=== PATIENT | male | born 1935 | race Caucasian/White ===

== ENCOUNTER → 2022-02-22 | Outpatient (CLI) | payer MEDICARE ==
[~2022-02-22] MED LIST: BENICAR40 MG PO; GLYBURIDE5 MG PO; LANTUS SOL100 UNIT/1 SQ; METFORMIN HCL500 MG PO; VITAMIN C 500500 MG PO; ZOCOR 40 MG TAB40 MG PO
[2022-02-22 13:50] LABS: BUN/CREATININE RATIO 10 (0-10)
== END ==
LOC: OPSV2 12:08
PROVIDERS: Anesthesiology
DX: Z01.818 Encounter for other preprocedural examination (principal); Z20.822 Contact with and (suspected) exposure to COVID-19; R91.1 Solitary pulmonary nodule; R59.0 Localized enlarged lymph nodes
CPT/HCPCS: 71046; 80048; U0003

== ENCOUNTER → 2022-02-27 | Day surgery (SDC) | payer MEDICARE ==
[~2022-02-27] MED LIST changes: +VITAMIN C1000 MG PO
== END | disposition home or self-care (01) ==
LOC: OR 09:02 → EDSTATUS 12:00
DX: C96.9 Malignant neoplasm of lymphoid, hematopoietic and related tissue, unspecified (principal); R91.8 Other nonspecific abnormal finding of lung field; I10 Essential (primary) hypertension; E78.00 Pure hypercholesterolemia, unspecified; E11.36 Type 2 diabetes mellitus with diabetic cataract; H26.9 Unspecified cataract; Z20.822 Contact with and (suspected) exposure to COVID-19; Z87.891 Personal history of nicotine dependence
CPT/HCPCS: 71045; 82962; 87015; 87070; 87116; 87205; 87206; 87252; J0330; J2704; J2710; J7120

== ENCOUNTER → 2022-03-07 | Outpatient (CLI) | payer MEDICARE | LOC: MRI 09:16 → EMI 09:16 → MRI 10:00 | DX: Z12.82 Encounter for screening for malignant neoplasm of nervous system (principal); C43.9 Malignant melanoma of skin, unspecified | CPT/HCPCS: 70553; A9577 ==

== ENCOUNTER → 2022-04-10 | Outpatient (CLI) | payer MEDICARE | LOC: LAB 10:24 | DX: C43.9 Malignant melanoma of skin, unspecified (principal); R91.8 Other nonspecific abnormal finding of lung field | CPT/HCPCS: 36415; 82565; 84520 ==

== ENCOUNTER → 2022-04-12 | Outpatient (CLI) | payer MEDICARE | LOC: CT 08:30 | DX: C43.9 Malignant melanoma of skin, unspecified (principal); R91.8 Other nonspecific abnormal finding of lung field | CPT/HCPCS: 71270; Q9967 ==

== ENCOUNTER → 2022-04-16 | Outpatient (CLI) | payer MEDICARE | LOC: HEART 5 08:40 | DX: C34.90 Malignant neoplasm of unspecified part of unspecified bronchus or lung (principal) | CPT/HCPCS: 94010 ==

== ENCOUNTER → 2022-04-29 | Day surgery (SDC) | payer MEDICARE ==
[~2022-04-29] MED LIST changes: +GLIPIZIDE ER10 MG PO; +IBU800 MG PO; +PHENERGAN 25 MG25 M1 PO
[2022-04-29 08:15] LABS: BUN/CREATININE RATIO 22 (0-10)
== END | disposition home or self-care (01) ==
LOC: OR 07:20
PROVIDERS: Surgery
DX: C78.00 Secondary malignant neoplasm of unspecified lung (principal); C80.1 Malignant (primary) neoplasm, unspecified; I10 Essential (primary) hypertension; E78.00 Pure hypercholesterolemia, unspecified; E11.9 Type 2 diabetes mellitus without complications; Z87.891 Personal history of nicotine dependence
CPT/HCPCS: 36415; 71045; 71046; 76000; 80048; 82962; 93005; C1769; C1788; J0690; J1100; J1642; J2001; J2405; J2704; J3010; J7040